=== PATIENT | female | born 1970 | race Caucasian/White ===

== ENCOUNTER → 2016-12-10 | Outpatient (CLI) | payer OTHER ==
[~2016-12-10] MED LIST: ESTR1PAT66 TD; OMEP-110 PO; PROG100C4 PO
[2016-12-10 12:00] LABS: ASPARTATE AMINO TRANSFERASE 17 U/L (15-37); BLOOD UREA NITROGEN 12 mg/dL (7-18)
== END | disposition home or self-care (01) ==
LOC: LAB 11:07
PROVIDERS: ATTEND Family Medicine
DX: E03.9 Hypothyroidism, unspecified (principal); D64.9 Anemia, unspecified; E11.9 Type 2 diabetes mellitus without complications; E78.5 Hyperlipidemia, unspecified; E06.3 Autoimmune thyroiditis; E55.9 Vitamin D deficiency, unspecified; M10.9 Gout, unspecified; E16.1 Other hypoglycemia; R79.82 Elevated C-reactive protein (CRP); E72.11 Homocystinuria; N95.1 Menopausal and female climacteric states; R62.7 Adult failure to thrive
CPT/HCPCS: 36415; 80053; 80061; 82306; 82627; 82670; 83036; 83090; 84144; 84305; 84402; 84403; 84436; 84443; 84481; 84482; 84550; 85025; 86141; 86337; 86376; 86800